=== PATIENT | male | born 1990 | race Caucasian/White ===

== ENCOUNTER 2017-06-15 18:03 | Emergency (ER) | payer OTHER | END 2017-06-15 20:29 | disposition left against medical advice (07) | LOC: M ED 18:03 | DX: Z53.21 Procedure and treatment not carried out due to patient leaving prior to being seen by health care provider (principal) ==

== ENCOUNTER → 2017-07-02 | Outpatient (CLI) | payer OTHER ==
[2017-07-02 18:42] LABS: ALBUMIN 4.1 GM/DL (3.2-5.2); ALBUMIN/GLOBULIN RATIO 1.58 (1.00-1.93); ALKALINE PHOSPHATASE 59 U/L (45-117); ALT/SGPT 35 U/L (12-78); AST/SGOT 12 U/L (7-37); BILIRUBIN,DIRECT 0.1 MG/DL (0.0-0.2); BILIRUBIN,TOTAL 0.4 MG/DL (0.2-1.0); CHOLESTEROL LEVEL 178 MG/DL (<200); CHOLESTEROL RISK RATIO 3.016 (<5); HDL CHOLESTEROL 59 MG/DL (>40); LDL CHOLESTEROL 103.6 MG/DL (<100); NON-HDL-C 119 MG/DL; TOTAL PROTEIN 6.7 GM/DL (6.4-8.2); TRIGLYCERIDES LEVEL 77 MG/DL (<150)
[2017-07-02 18:46] LABS: ESTRADIOL 25.4 PG/ML (<39.8)
== END ==
LOC: M LRY 10:35
DX: F64.0 Transsexualism (principal)
CPT/HCPCS: 80076